=== PATIENT | male | born 1980 | race Caucasian/White ===

== ENCOUNTER 2020-07-29 15:29 | Emergency (ER) | payer OTHER, SELFPAY ==
[2020-07-29 15:48] VITALS: BP 112/71; PULSE 88; RESP 16; TEMP 37.3; O2SAT 100
--- NOTE | 2020-07-29 17:10 | ED.DENTAL ---
HPI - Dental/Oral General Chief complaint: Dental/Oral Stated complaint: jaw swollen/bad tooth Time Seen by Provider: 07/29/20 17:10 Source: patient and RN notes reviewed Mode of arrival: ambulatory Limitations: no limitations History of Present Illness HPI Narrative: 40 year old male who presents to [facility] care with complaints of increasing discomfort to # 28 tooth since this morning.Patient states that he was lifting his elderly dog up and dog head butted him accidently causing increase pain to his tooth with swelling to right jaw developing. Patient states that he has just moved to area from [place] with new job and has not established dentist in area yet, he does have dental insurance. Patient states for the the past few months he has had intermittent discomfort to his tooth but it has waxed and waned and he has not seen about getting it fixed. Patient denies any difficulty with his swallowing or any shortness of breath, no trismus noted or any sign of Tobin angina Complaint: tooth pain Location: Tooth # (28) Onset (ago): hour(s) (10) Duration: constant Severity: moderate Severity scale (1-10): 5 Relieving factors: other (Tylenol has helped some) Exacerbating factors: chewing and cold Context: history of dental caries Associated symptoms: gum swelling and other (right jaw swelling) Treatment prior to arrival: other (Tylenol) Related Data Allergies Allergy/AdvReac Type Severity Reaction Status Date / Time No Known Allergies Allergy Verified 07/29/20 16:51 Review of Systems Review of Systems: Narrative: CONSTITUTIONAL: Denies fever, chills, or sweats. EYES: Denies visual changes, redness, or discharge. ENT: Denies rhinorrhea, congestion, sore throat, or otalgia positive for dental pain and facial swelling right CARDIOVASCULAR: Denies chest pain, palpitations, or edema. RESPIRATORY: Denies cough or dyspnea. GASTROINTESTINAL: Denies abdominal pain, nausea, vomiting, or diarrhea. GENITOURINARY: Denies dysuria or hematuria. SKIN: Denies rash or itching. MUSCULOSKELETAL: Denies back pain, joint pain, or myalgia. NEUROLOGIC: Denies headache, numbness, or weakness. PSYCHIATRIC: Denies anxiety or depression. All systems reviewed & are unremarkable except as noted in HPI and below PMFSH Past Medical History Medical History (Updated 07/31/20 @ 13:45 by Kimberli Marshall NP) No pertinent past medical history Surgical History Surgical History (Updated 07/31/20 @ 13:45 by Kimberli Marshall NP) No history of previous surgery Social History Social History (Updated 07/31/20 @ 13:47 by Kimberli Marshall NP) Smoking packs per day: 1 Smoking cigarettes per day: 20.0 Years smoked: 10 Smoking pack-years: 10.00 Smoking status: Former smoker Tobacco type: e-cigarettes/vaping Additional smoking assessment comments: smoked cigarettes till 4 months ago now vapes Living arrangements: with family Gender identity (if verbalized by the patient): Female Comments At time of signature, agree with nursing past medical, surgical, social history. There is no relevant family history pertinent to the presenting complaint Exam Narrative: Exam Narrative: GENERAL: Well-appearing, well-nourished, and in no acute distress. HEAD: Normocephalic, atraumatic. EYES: PERRLA and EOMI. ENT: Nares clear, no rhinorrhea or epistaxis. Mucous membranes moist.TM's normal with good light reflex, throat pink with no swelling or tonsil enlargement no Tobin angina, dental pain to #28 tooth with surrounding gum redness and swelling, no trismus noted, right jaw swelling noted and tenderness. NECK: Supple.no lymphadenopathy CHEST: Clear to auscultation. No respiratory distress.SAO2 100% on room air, even and nonlabored respirations. HEART: Regular rate and rhythm. No murmur heard. Normal peripheral pulses. ABDOMEN: Soft, nontender, nondistended, normal active bowel sounds. EXTREMITIES: Normal range of motion. No edema. SKIN: Warm, dry, no rash.
== END 2020-07-29 17:25 | disposition home or self-care (01) ==
PROVIDERS: Emergency Provider Registered Nurse
DX: K08.89 Other specified disorders of teeth and supporting structures (principal); K02.9 Dental caries, unspecified; R22.0 Localized swelling, mass and lump, head; F17.200 Nicotine dependence, unspecified, uncomplicated
CPT/HCPCS: 99213; G0463